=== PATIENT | female | born 1935 | race Hispanic/Latino ===

== ENCOUNTER 2018-08-27 06:41 | Day surgery (SDC) | payer MEDICARE ==
[2018-08-26 13:13] VITALS: BMI 27.2
[2018-08-27 07:44] VITALS: PULSE 78; RESP 20; TEMP 97.1; O2SAT 98
[2018-08-27] MEDS ORDERED: Propofol 10 mg/ml Inj (20 ML) ONE (08:56)
[2018-08-27] MEDS ORDERED: Lactated Ringer's 1,000 ML IV ONE (09:00)
--- NOTE | 2018-08-27 09:00 | CP.SDSHP ---
Same Day Surgery H & P - History Proposed Procedure: colonoscopy Pre-Op Diagnosis: GI bleed - Previous Medical/Surgical History Cardiac: Hypertension, ASHD/CAD, Arrhythmia Endocrine/Metabolic: Diabetes - Allergies Allergies: Allergies amoxicillin Allergy (Intermediate, Verified 08/27/18 07:28) RASH levofloxacin Allergy (Intermediate, Verified 08/27/18 07:28) RASH Penicillins Allergy (Intermediate, Verified 08/27/18 07:28) RASH - Physical Exam Vital Signs: Vital Signs 08/27/18 07:30 Temperature 97.1 F L Pulse Rate 78 Respiratory 20 Rate Blood Pressure 142/56 L O2 Sat by Pulse 98 Oximetry Mental Status: Alert & Oriented x3 Neuro: WNL Heart: WNL Lungs: WNL GI: WNL - {Optional Preform as Required} Abdomen: WNL - Impression Impression: GI bleed Pt. Evaluated Today:Candidate for Anesthesia & Procedure: Yes - Date & Time Date: 08/27/18 Time: 08:45 Short Stay Discharge - Short Stay Discharge Admitting Diagnosis/Reason for Visit: GI BLEEDING Disposition: HOME/ ROUTINE
[2018-08-27 10:20] VITALS: BP 129/67
== END 2018-08-27 10:23 | disposition home or self-care (01) ==
LOC: C.ENDO 06:41
PROVIDERS: ATTEND Internal Medicine Gastroenterology
DX: K92.2 Gastrointestinal hemorrhage, unspecified (principal); K62.1 Rectal polyp; K57.30 Diverticulosis of large intestine without perforation or abscess without bleeding; K64.8 Other hemorrhoids
CPT/HCPCS: 45388; 82948; 88305; J2704; J7120

== ENCOUNTER 2018-10-06 09:58 | Outpatient (CLI) | payer MEDICARE | END 2018-10-06 09:59 | disposition home or self-care (01) | LOC: C.RADIC 09:58 ==